=== PATIENT | male | born 1960 | race Caucasian/White ===

== ENCOUNTER 2020-06-25 11:46 | Emergency (ER) | payer SELFPAY ==
--- NOTE | 2020-06-25 11:52 | EDM.PDOC ---
ED HPI GENERAL MEDICAL PROBLEM - General Chief Complaint: Trauma Stated Complaint: LEFT MIDDLE FINGER LACERATION TABLE SAW Time Seen by Provider: 06/25/20 11:50 Source of Information: Reports: Patient History Limitations: Reports: No Limitations - History of Present Illness INITIAL COMMENTS - FREE TEXT/NARRATIVE: Patient is a right-handed male who presents from home via triage Just prior to arrival in the ER he was working on a project using a table saw when he cut his left middle finger "off". He also notes he cut the tip of the distal aspect and left index finger with ongoing bleeding. Patient notes he cut his left middle finger "off at the knuckle" and also cut his left index finger at the distal tip. Patient is unsure of his last tetanus shot. Patient denies any current pain or numbness. He is not on blood thinners or steroids. Patient denies any medical allergies. last po this am around breakfast. Patient denies any history of runny nose, sore throat, cough, change in taste or smell. Onset: Today, Other Duration: Other Location: Reports: Lower Extremity, Left Treatments S[employer]PARER: Reports: Other (see below) Finger-Index Pain Score (Numeric/FACES): 6 - Related Data Allergies Allergy/AdvReac Type Severity Reaction Status Date / Time No Known Allergies Allergy Verified 06/25/20 11:55 Home Meds: Home Meds NK [No Known Home Meds] 06/25/20 [History] Review of Systems - Review of Systems Review Of Systems: See Below Constitutional: Reports: No Symptoms Eyes: Reports: No Symptoms Mouth/Throat: Reports: No Symptoms Cardiovascular: Reports: No Symptoms GI/Abdominal: Reports: No Symptoms Genitourinary: Reports: No Symptoms Musculoskeletal: Reports: Hand Pain (mild to index finger. no left middle finger pain) Skin: Reports: Other (no acute complaints. ) Neurological: Reports: No Symptoms, Weakness, Gait Disturbance Psychiatric: Reports: No Symptoms ED EXAM, GENERAL - Physical Exam Exam: See Below Exam Limited By: No Limitations General Appearance: Alert Ears: Normal External Exam Nose: Normal Inspection Head: Normocephalic Neck: Normal Inspection, Full Range of Motion Respiratory/Chest: No Respiratory Distress, Chest Non-Tender Cardiovascular: Normal Peripheral Pulses, No Edema Peripheral Pulses: 2+: Radial (L) (normal cap refil of index finger. ) GI/Abdominal: Soft, Non-Tender Extremities: Other (transverse amputation of left middle finger at distal aspect of middle phalaynx. laceration of left index finger at tip, into nail plate, normal cap refil of index finger and intact sensory of index finger. remaining left hand and and fingers are without signs of trauma. ) Neurological: Alert, Normal Cognition, Other (gcs15) Skin Exam: Warm Lymphatic: No Adenopathy ED TRAUMA EXTREMITY PROCEDURES - Additional/Other Procedure(s) Other (Free Text) Procedure(s): Digital block left index and middle finger 0.25% bupivaine alcohol prep 2 mls x 2 to index finger via 27 g needle 2 mls x 2 in middle finger via 27 g needle Left middle and index finger prepped with Hibiclens. The left middle finger was irrigated with 300 mils normal saline and the left index tear with 200 mls Course - Vital Signs Text/Narrative:: X-ray interpretation, bedside portable. Impression :complete amputation of left middle finger at the distal aspect of the middle phalanx with bony involvement. . Left index finger has bony fracture of the distal phalanx. 12:17 PM. Patient underwent digital block left middle and index finger see procedure note 1217 with bupivacaine. orthopaedic paged, NPO, IV ancef and td updated. pain controlled. 1227: zeferino Neff continuous improvement coordinator provider to Provider discussion. await call back "air exchanger in OR is being worked on". 1237: no OR capacity due to "OR shut down" 1240: [facility] one call. images pushed for orthopaedic review. closest with capacity. 1320: Patient Name: Gisella Nguyen : 1960 ID: [id number](DEFAULT) Study Date: 25-Jun-2020 12:11 [place] [address] DIAGNOSTIC IMAGING DEPARTMENT Computed Radiography X Ray Patient Name: GISELLA NGUYEN Unit Number: [id number] Date of : 1960 Ordering Provider: True Sims MD Location: [facility] Primary Provider: None PCP Room/Bed: Order Procedure: [id number] CR/Hand Comp Min 3V Lt Reason for Exam table saw injury Date of Exam: 06/25/20 Order Requisition#: [id number] Hand Comp Min 3V Lt CLINICAL HISTORY: Table saw injury FINDINGS: There is amputation of the distal phalanx and soft tissue of the third digit. There is a fracture of the tuft and laceration of the tip of the index finger. 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 IMPRESSION: Amputation of the distal phalanx of the third digit with some bone fragments near the region of the DIP. Tuft fracture second distal phalanx with laceration Dictated by: Jeremias Linder MD 06/25/20 at 1251 1417: Dr. Francisco Javier Bateman, ortho hand accepts for transfer to [facility]. EMTALA completed. NPO. rapid covid ordered here, accepted to ED, the OR at [facility]. stable for ground transfer. patient agrees. paperwork, images pushed and to report completed. Lab here will run covid stat, pre-op. no covid symptoms. MDM: Gisella Nguyen presents with acute traumatic injury to his left index finger with a open distal phalanx fracture and a transverse traumatic amputation through the bone of his left middle finger. He was treated here emergently with pain control with digital block, IV antibiotics and a tetanus update. Patient's wounds were cleansed irrigated and dressed appropriately. Closest hospital with Ortho capacity was contacted and patient is stable for transfer via ground private car. He is aware of n.p.o. needs. The orthopedic physician intends to take the patient to the OR this afternoon. Copy of x-rays have been pushed and the Covid results will be called to the accepting hospital once available. The accepting physician asked that the patient come [facility] and that the Covid test and be followed by the [facility] in [facility] Disposition: transfer, [facility], to ED. Dr. Francisco Javier Bateman, orthopaedics accepts, to ED, then OR NPO Test pending: covid, low risk. no symptoms. Last Recorded V/S: Last Vital Signs Temp 36.1 C 06/25/20 11:52 Pulse 58 L 06/25/20 11:52 Resp 20 06/25/20 11:52 BP 153/99 H 06/25/20 11:52 Pulse Ox 98 06/25/20 11:52 - Orders/Labs/Meds Orders: Active Orders 24 hr Category Date Time Status Vaccines to be Administered [RC] PER UNIT ROUTINE Care 06/25/20 12:00 Active Nothing per Oral Now Diet [DIET] Diet 06/25/20 Lunch Active CORONAVIRUS COVID-19 RAPID [MOLEC] Stat Lab 06/25/20 14:16 Received Meds: Medications Discontinued Medications Generic Name Dose Route Start Last Admin Trade Name Jennifer PRN Reason Stop Dose Admin Bacitracin 1 dose 06/25/20 13:18 06/25/20 13:31 Bacitracin Oint 1 Gm TOP 06/25/20 13:19 1 dose ONETIME ONE Administration Bupivacaine HCl 10 ml 06/25/20 12:00 06/25/20 12:16 Sensorcaine-Mpf 0.25% INJECT 06/25/20 12:01 10 ml ONETIME ONE Administration Diphtheria/Tetanus/Acell Pertussis 0.5 ml 06/25/20 12:00 06/25/20 12:15 Boostrix IM 06/25/20 12:01 0.5 ml .ONCE ONE Administration Cefazolin Sodium/Dextrose 1 gm 50 mls @ 100 mls/hr 06/25/20 11:59 06/25/20 12:25 / Premix IV 06/25/20 12:28 100 mls/hr ONETIME ONE Administration Departure - Departure Time of Disposition: 14:27 (Dr. Francisco Javier Bateman, orhtopaedics, [facility]. closest [facility] capacity. ) Disposition: DC/Tfer to Acute Hospital 02 Condition: Fair Clinical Impression: Finger amputation, traumatic Open fracture of finger of left hand Qualifiers: Encounter type: initial encounter Finger: index finger Phalanx: distal - Discharge Information Referrals: PCP,None [Primary Care Provider] - Forms: ED Department Discharge Sepsis Event Note (ED) - Focused Exam Vital Signs: Vital Signs Temp Pulse Resp BP Pulse Ox 06/25/20 11:52 36.1 C 58 L 20 153/99 H 98 - My Orders Last 24 Hours: My Active Orders 06/25/20 12:00 Vaccines to be Administered [RC] PER UNIT ROUTINE Nothing per Oral Now Diet [DIET] 06/25/20 14:16 CORONAVIRUS COVID-19 RAPID [MOLEC] Stat - Assessment/Plan Last 24 Hours: My Active Orders 06/25/20 12:00 Vaccines to be Administered [RC] PER UNIT ROUTINE Nothing per Oral Now Diet [DIET] 06/25/20 14:16 CORONAVIRUS COVID-19 RAPID [MOLEC] Stat
[2020-06-25] MEDS ORDERED: ceFAZolin 1 GM in Premix Bag 1 BAG IV ONE (11:59)
[2020-06-25] MEDS ORDERED: Diphtheria,Pertussis(Acell),Tetanus Vaccine 0.5 ML Syringe IM ONE (12:00)
[2020-06-25] MEDS ORDERED: Bupivacaine 0.25% 10 ML SDV INJECT ONE (12:00)
--- NOTE | 2020-06-25 12:54 | CR ---
Hand Comp Min 3V Lt CLINICAL HISTORY: Table saw injury FINDINGS: There is amputation of the distal phalanx and soft tissue of the third digit. There is a fracture of the tuft and laceration of the tip of the index finger. 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 IMPRESSION: Amputation of the distal phalanx of the third digit with some bone fragments near the region of the DIP. Tuft fracture second distal phalanx with laceration
[2020-06-25] MEDS ORDERED: Bacitracin Oint 1 GM U/D Packet TOP ONE (13:18)
== END 2020-06-25 14:43 ==
LOC: JP.ED 11:46
DX: S68.623A Partial traumatic transphalangeal amputation of left middle finger, initial encounter (principal); S62.631B Displaced fracture of distal phalanx of left index finger, initial encounter for open fracture; Z23 Encounter for immunization; Z20.822 Contact with and (suspected) exposure to COVID-19; W27.0XXA Contact with workbench tool, initial encounter
CPT/HCPCS: 64450; 73130-26-LT; 73130-LT; 90471; 90715; 96365; 99284-25; 99285; J0690; J3490; U0002

== ENCOUNTER 2021-03-17 16:10 | Emergency (ER) | payer SELFPAY ==
[2021-03-17] MEDS ORDERED: Bacitracin Oint 1 GM U/D Packet TOP ONE (17:46)
--- NOTE | 2021-03-17 18:14 | CRLCR ---
For Patients: As a result of the Cures Act, medical imaging exams and procedure reports are released immediately into your electronic medical record. You may view this report before your referring provider. If you have questions, please contact your health care provider. Indication: Trauma, chainsaw injury Technique: Three views Comparison: Left hand 06/25/2020 Findings: Bones: Amputation of the left 3rd digit re-demonstrated at the middle phalangeal level. Old fracture of the tuft of the 2nd digit demonstrated. Joint spaces: No dislocation. Osteoarthritis at the proximal interphalangeal joints of the 2nd through 5th digits, interphalangeal joint of the thumb and 2nd metacarpophalangeal joint. Soft tissues: Mild soft tissue swelling 4th digit. Metal foreign body at the skin surface volar aspect of the wrist, no change from the prior. Dictated by Michael Serra MD @ 03/17/2021 6:12:54 PM (Electronically Signed)
--- NOTE | 2021-03-17 18:33 | EDM.PDOC ---
ED HPI GENERAL MEDICAL PROBLEM - General Chief Complaint: Upper Extremity Injury/Pain Stated Complaint: L HAND INJURY Time Seen by Provider: 03/17/21 17:14 Source of Information: Reports: Patient, Family, RN Notes Reviewed History Limitations: Reports: No Limitations - History of Present Illness INITIAL COMMENTS - FREE TEXT/NARRATIVE: 61-year-old gentleman presents emergency department today with a laceration to his ring finger on his left hand he injured himself with a chainsaw he has no functional complaints he is missing the distal tip of digit #3 from a prior table saw injury Left Finger-Ring Pain Score (Numeric/FACES): 2 - Related Data Allergies Allergy/AdvReac Type Severity Reaction Status Date / Time No Known Allergies Allergy Verified 03/17/21 17:03 Home Meds: Home Meds amLODIPine [Norvasc] 10 mg PO DAILY 03/17/21 [History] Past Medical History Cardiovascular History: Reports: Hypertension Musculoskeletal History: Reports: Fracture - Infectious Disease History Infectious Disease History: Reports: Chicken Pox, Measles - Past Surgical History Head Surgeries/Procedures: Reports: None Cardiovascular Surgical History: Reports: None Musculoskeletal Surgical History: Reports: None Social & Family History - Tobacco Use Tobacco Use Status *Q: Never Tobacco User Second Hand Smoke Exposure: No - Caffeine Use Caffeine Use: Reports: Coffee, Tea - Recreational Drug Use Recreational Drug Use: No Review of Systems - Review of Systems Review Of Systems: See Below Musculoskeletal: Reports: Hand Pain Skin: Reports: Wound ED EXAM, GENERAL - Physical Exam Exam: See Below Free Text/Narrative:: Examination of the left hand this is a chainsaw injury it is very jagged multiple cuts it is the majority of the wound is over the proximal phalanges digit #4 he did have a ring on May the silicone that has been taken off there is a cut also across the third MCP area on the on the dorsal surface. Radial pulses +2 full range of motion of all digits ED TRAUMA EXTREMITY PROCEDURES - Laceration/Wound Repair Left Digit - 4th (Ring) Lac/Wound Length In cm: 6 Appearance: Irregular, Mildly Contaminated Distal NVT: Neuro & Vascular Intact, No Tendon Injury Anesthetic Type: Digital Local Anesthesia - Lidocaine (Xylocaine): 1% Plain Local Anesthetic Volume: 2cc Skin Prep: Saline Saline Irrigation (cc's): 200 Exploration/Debridement/Repair: Wound Explored, In a Bloodless Field, Explored to Base, Foreign Material Removed, Wound Margins Revised Closed With: Sutures Suture Size: 4-0 # of Sutures: 13 Suture Type: Nylon, Interrupted Sterile Dressing Applied: Nurse Tetanus Status Addressed: Yes Complications: No Course - Vital Signs Last Recorded V/S: Last Vital Signs Temp 97.7 F 03/17/21 17:02 Pulse 79 03/17/21 17:02 Resp 16 03/17/21 17:02 BP 155/107 H 03/17/21 17:02 Pulse Ox 98 03/17/21 17:02 - Orders/Labs/Meds Meds: Medications Discontinued Medications Generic Name Dose Route Start Last Admin Trade Name Jennifer PRN Reason Stop Dose Admin Bacitracin 1 dose 03/17/21 17:46 Bacitracin Oint 1 Gm U/D Packet TOP 03/17/21 17:47 ONETIME ONE Lidocaine HCl 5 ml 03/17/21 17:46 Lidocaine 1% 5 Ml Sdv INJECT 03/17/21 17:47 ONETIME ONE Departure - Departure Time of Disposition: 18:33 Disposition: Home, Self-Care 01 Condition: Fair (Laceration) Clinical Impression: Laceration of left ring finger Qualifiers: Encounter type: initial encounter Damage to nail status: without damage Foreign body presence: with foreign body Qualified Code(s): S61.225A - Laceration with foreign body of left ring finger without damage to nail, initial encounter - Discharge Information Instructions: Laceration Care, Adult Referrals: Jose Aj, [employer]OR SERVICES SPECIALIST [Primary Care Provider] - Additional Instructions: Suture removal in 10 days, follow wound care instruction sheet, follow-up with primary care or return to the emergency department for suture removal Sepsis Event Note (ED) - Focused Exam Vital Signs: Vital Signs Temp Pulse Resp BP Pulse Ox 03/17/21 17:02 97.7 F 79 16 155/107 H 98 03/17/21 16:55 97.7 F 79 16 155/107 H 98 - Assessment/Plan Plan: Assessment Acuity = acute Site and laterality = laceration ring finger left hand Etiology = chainsaw injury Manifestations = none Location of injury = Home Lab values = x-ray of the finger reveals no fracture Plan Suture removal in 10 days, follow wound care instruction sheet This note was dictated using SEAT 4a voice recognition software please call with any questions on syntax or grammar.
== END 2021-03-17 18:56 | disposition home or self-care (01) ==
LOC: JP.ED 16:10
DX: S61.225A Laceration with foreign body of left ring finger without damage to nail, initial encounter (principal); I10 Essential (primary) hypertension; Z79.899 Other long term (current) drug therapy; W29.3XXA Contact with powered garden and outdoor hand tools and machinery, initial encounter
CPT/HCPCS: 12002; 73130-LT; 99283-25

== ENCOUNTER 2021-06-26 13:44 | Emergency (ER) | payer SELFPAY | END 2021-06-26 15:09 | disposition home or self-care (01) | LOC: JP.ED 13:44 | DX: K04.7 Periapical abscess without sinus (principal) | CPT/HCPCS: 99282 ==

== ENCOUNTER 2021-06-27 08:47 | Emergency (ER) | payer SELFPAY ==
[2021-06-27] MEDS ORDERED: Sodium Chloride 0.9% 10 ML Syringe FLUSH PRN (09:21)
[2021-06-27] MEDS ORDERED: Clindamycin Phosphate 900 MG in Sodium Chloride 0.9% 100 ML IV ONE ×2 (09:21→09:45)
[2021-06-27] MEDS ORDERED: diphenhydrAMINE 25 MG Cap PO ONE (09:22)
[2021-06-27] MEDS ORDERED: cefTRIAXone 1 GM Vial IM ONE (09:33)
[2021-06-27] MEDS ORDERED: Lidocaine 1% 5 ML VIAL ONE (09:43)
== END 2021-06-27 10:13 | disposition home or self-care (01) ==
LOC: JP.ED 08:47
DX: M27.2 Inflammatory conditions of jaws (principal); K02.9 Dental caries, unspecified; R60.0 Localized edema; I10 Essential (primary) hypertension; Z79.899 Other long term (current) drug therapy; Z88.8 Allergy status to other drugs, medicaments and biological substances
CPT/HCPCS: 96372; 99283; A9270; J0696

== ENCOUNTER 2021-06-28 08:55 | Emergency (ER) | payer SELFPAY ==
[2021-06-28] MEDS ORDERED: cefTRIAXone 1 GM Vial IM ONE (09:22)
[2021-06-28] MEDS ORDERED: Lidocaine 1% 5 ML VIAL ONE (09:27)
== END 2021-06-28 09:58 | disposition home or self-care (01) ==
LOC: JP.ED 08:55
DX: K04.7 Periapical abscess without sinus (principal); K02.9 Dental caries, unspecified; H05.222 Edema of left orbit; I10 Essential (primary) hypertension; Z88.8 Allergy status to other drugs, medicaments and biological substances; Z79.899 Other long term (current) drug therapy
CPT/HCPCS: 96372; 99283; J0696